=== PATIENT | male | born 2000 | race Caucasian/White ===

== ENCOUNTER 2023-08-30 13:23 | Emergency (ER) | payer MEDICAID, SELFPAY ==
--- NOTE | 2023-08-30 13:50 | CRLHL7_ITS ---
For Patients: As a result of the Century Cures Act, medical imaging exams and procedure reports are released immediately into your electronic medical record. You may view this report before your referring provider. If you have questions, please contact your health care provider. Indication: Pain Technique: Three views Comparison: None Findings/Impression: Bones: On the AP view there is apparent irregularity of the base of the lateral malleolus, question a nondisplaced fracture. Recommend dedicated ankle series. Joint spaces: Unremarkable. Soft tissues: Medial soft tissue swelling. Dictated by Derrell Barrett MD @ 08/30/2023 2:59:54 PM (Electronically Signed)
[2023-08-30 13:53] VITALS: BP 169/95; PULSE 82; RESP 16; TEMP 36.9; O2SAT 97; BMI 41.8
--- NOTE | 2023-08-30 15:02 | CRLHL7_ITS ---
For Patients: As a result of the Century Cures Act, medical imaging exams and procedure reports are released immediately into your electronic medical record. You may view this report before your referring provider. If you have questions, please contact your health care provider. Indication: Fall. Technique: Right ankle 3 views. Comparison: None. Findings: Bones: Bone alignment is normal. There is fragmentation involving the tips of the medial and lateral malleoli. These fragments appear chronic. No convincing evidence for acute fracture. Joint spaces: Unremarkable. Soft tissues: Unremarkable. Dictated by Warner Ryder MD @ 08/30/2023 4:26:54 PM (Electronically Signed)
--- NOTE | 2023-08-30 17:28 | ED.GENADULT ---
HPI - General Adult General Chief complaint: Extremity Pain/Injury, Lower Stated complaint: right foot pain might have broke it Time Seen by Provider: 08/30/23 17:27 History of Present Illness HPI narrative: Patient here with right foot pain, no known injury. History of flat feet. Woke up, stood up on the foot, had pain and fell down. Ice pack applied in triage. 22-year-old young man presenting to the emergency department with severe right foot pain. No known injury at least recently. He had gone to sleep woke and noted to have terrible pain in his right foot. He has been feeling chilled on off today. No fever. He says he has got it elevated. No history of gout. Does endorse rather flat feet. No dietary changes or excessive consumption of usual suspects for gout flare. Related Data Previous Rx's Medication Instructions Recorded cephalexin 500 mg capsule 500 mg PO TID 8 days #24 caps 08/30/23 cephalexin 500 mg capsule 500 mg PO TID 8 days #24 caps 08/30/23 indomethacin 50 mg capsule 50 mg PO TID PRN #21 caps 08/30/23 indomethacin 50 mg capsule 50 mg PO TID PRN #24 caps 08/30/23 Review of Systems Status of ROS: Reports: 6 or more systems reviewed and unremarkable except as noted in History and below PFSH [facility] Social History Non-prescribed substance use: denies use Exam Narrative: Exam Narrative: Pleasant. Seems uncomfortable. Large man. Lower extremities are full consistent with body habitus. Cranial nerves 2-12 intact. Skin is warm and dry without rash other than exquisitely tender mild calor and moderate edema over the dorsum lateral foot. Feet are notably flat as described. No ankle tenderness/medial or lateral malleoli. Breathing easily. Lungs appear to be clear. Heart in regular rate and rhythm is distant. Const: Vital Signs, click to edit/add: Vital Signs - 24 hr 08/30/23 13:53 Temperature 98.5 F Pulse Rate [Right Pulse Oximeter] 82 Respiratory Rate 16 Blood Pressure [Ri ght Upper Arm] 169/95 H Pulse Oximetry 97 Oxygen Delivery Me thod Room Air Documenting provider has reviewed patient's vital signs: yes Course Vital Signs Vital signs: Initial Vital Signs Temperature 98.5 F 08/30/23 13:53 Temperature Source Temporal Artery Scan 08/30/23 13:53 Pulse Rate 82 08/30/23 13:53 Pulse Rhythm Regular 08/30/23 13:53 Respiratory Rate 16 08/30/23 13:53 Blood Pressure 169/95 H 08/30/23 13:53 Blood Pressure Mean 119 H 08/30/23 13:53 Blood Pressure Position Sitting 08/30/23 13:53 Pulse Oximetry 97 08/30/23 13:53 Oxygen Delivery Method Room Air 08/30/23 13:53 Vital Signs Temperature 98.5 F 08/30/23 13:53 Pulse Rate 82 08/30/23 13:53 Respiratory Rate 16 08/30/23 13:53 Blood Pressure 169/95 H 08/30/23 13:53 Pulse Oximetry 97 08/30/23 13:53 Oxygen Delivery Method Room Air 08/30/23 13:53 Temperature 98.5 F 08/30/23 13:53 Pulse Rate 82 08/30/23 13:53 Respiratory Rate 16 08/30/23 13:53 Blood Pressure 169/95 H 08/30/23 13:53 Pulse Oximetry 97 08/30/23 13:53 Oxygen Delivery Method Room Air 08/30/23 13:53 Medical Decision Making MDM Narrative Medical decision making narrative: While the may reflect pain, chills are perhaps concerning sign. Maybe we are dealing more with a cellulitis here than the skeletal. Denies history of gout or reactive arthritis of any sort. Need to look for occult fracture as well. No fluid I think available to drain at this time. X-raying foot to start. Do not see acute bony abnormality on my read. Though there are some paige malleolar fragments I think that are probably old. Date of Service: 08/30/23 Procedure(s): XR foot RT min 3V Accession Number(s): [id number] cc: PROVIDER,TEMP~ For Patients: As a result of the 21st Century Cures Act, medical imaging exams and procedure reports are released immediately into your electronic medical record. You may view this report before your referring provider. If you have questions, please contact your health care provider. Indication: Pain Technique: Three views Comparison: None Findings/Impression: Bones: On the AP view there is apparent irregularity of the base of the lateral malleolus, question a nondisplaced fracture. Recommend dedicated ankle series. Joint spaces: Unremarkable. Soft tissues: Medial soft tissue swelling. Per radiology recommendation proceeding with dedicated ankle. Given acetaminophen and then later ibuprofen. Right ankle 3 views. Comparison: None. Findings: Bones: Bone alignment is normal. There is fragmentation involving the tips of the medial and lateral malleoli. These fragments appear chronic. No convincing evidence for acute fracture. Joint spaces: Unremarkable. Soft tissues: Unremarkable. Reviewed ankle x-rays and I would note what I think are chronic changes as indicated above. Has wrapped himself in blankets feeling cold. Mildly elevated white count. Moderately elevated CRP Treating for possible cellulitis. IV fluids have been started and will be given a g of Rocephin. Pending uric acid and ESR. Severe NSAID sensitivity would suspect gout and maybe this is the 1st occurrence of it. Vitally well during time in the emergency depart See patient discharge plan Lab Data Lab results reviewed: Yes I reviewed the patient's lab results Labs: Lab Results 08/30/23 08/30/23 Range/Units 18:03 18:58 WBC 11.53 H (4.50-11.00) K/uL RBC 4.98 (4.30-5.90) m/uL Hgb 12.3 L (13.5-17.5) gm/dL Hct 39.1 (37.0-53.0) % MCV 79 L (80-100) fL MCH 25 L (26-34) pg MCHC 32 (32-36) gm/dL RDW Coeff of Maggie 15.1 (11.5-15.5) % Plt Count 398 (140-440) K/uL Neut % (Auto) 69.7 (42.0-72.0) % Lymph % (Auto) 17.0 L (20-44) % Preston % (Auto) 11.5 H (0.0-11.0) % Eos % (Auto) 1.3 (0.0-7.0) % Baso % (Auto) 0.3 (0.0-3.0) % Neut # (Auto) 8.00 H (1.7-7.0) K/uL Lymph # (Auto) 2.00 (0.90-2.90) K/uL Preston # (Auto) 1.30 H (0.00-0.90) K/UL Eos # (Auto) 0.10 (0.00-0.50) K/uL Baso # (Auto) 0.00 (0.00-0.30) K/uL Abs Immat Gran (auto) 0.00 (0.00-0.30) K/uL Imm/Tot Granulo (auto) 0.2 % ESR 26 H (2-15) mm/hr Uric Acid 10.2 H (2.2-8.4) mg/dL C-Reactive Protein 6.3 H (0.5-1.0) mg/dL Discharge Plan Discharge Clinical Impression: Acute foot pain, Cellulitis, Gouty arthritis Patient Disposition: Home, Self-Care Condition: Stable Additional Instructions: I think you have features of both cellulitis and arthritis like gout. I think it would be prudent to treat both in this case. You do not need to take more antibiotics until midday tomorrow. I expect things to be a little more irritated tomorrow but return for marked increase in swelling, redness, pain or if you are evolving a fever. I would take the indomethacin regularly at least over the next 3 days. Crutch as needed for discomfort Prescriptions: New cephalexin 500 mg capsule 500 mg PO TID 8 Days Qty: 24 0RF indomethacin 50 mg capsule 50 mg PO TID PRNQty: 24 0RF Rx Instructions: administer with food or milk cephalexin 500 mg capsule 500 mg PO TID 8 Days Qty: 24 0RF indomethacin 50 mg capsule 50 mg PO TID PRNQty: 21 0RF Rx Instructions: administer with food or milk Follow Up/Referrals: Provider,Not a Local [Primary Care Provider] - Stand Alone Forms: MyHealth Info Instructions
[2023-08-30] MEDS: 0.9 % SODIUM CHLORIDE 1000 ml 1,000 ML IV (18:16)
[2023-08-30 18:17] LABS: Basophils Percent Auto 0.3 % (0.0-3.0); Eosinophils Percent Auto 1.3 % (0.0-7.0); Hematocrit 39.1 % (37.0-53.0); Hemoglobin* 12.3 gm/dL (13.5-17.5); Immature Granulocytes Pct Auto 0.2 %; Mean Corpuscular HGB Conc 32 gm/dL (32-36); Mean Corpuscular Hemoglobin 25 pg (26-34); Mean Corpuscular Volume 79 fL (80-100); Monocytes Percent Auto 11.5 % (0.0-11.0); Neutrophils Percent Auto 69.7 % (42.0-72.0); Platelet Count* 398 K/uL (140-440); RDW Coefficient of Variation % 15.1 % (11.5-15.5); Red Blood Count 4.98 m/uL (4.30-5.90); White Blood Count* 11.53 K/uL (4.50-11.00)
[2023-08-30 18:22] LABS: Slide Review Reflex No
[2023-08-30] MEDS: ACETAMINOPHEN 500 MG TABLET 1000 MG PO (18:24)
[2023-08-30 18:34] LABS: C Reactive Protein* 6.3 mg/dL (0.5-1.0)
--- NOTE | 2023-08-30 19:06 | ED.NURSE ---
Report from JADA Sanchez. I will now assume care of patient.
[2023-08-30 19:08] LABS: Uric Acid* 10.2 mg/dL (2.2-8.4)
[2023-08-30] MEDS: cefTRIAXone 1 GM in 0.9 % SODIUM CHLORIDE Mini-bag 100 ML IVPB (19:25)
[2023-08-30] MEDS: IBUPROFEN 400 MG TABLET 800 MG PO (19:25)
[2023-08-30 20:09] LABS: Erythrocyte SedimentationRate* 26 mm/hr (2-15)
== END 2023-08-30 20:25 | disposition home or self-care (01) ==
PROVIDERS: Emergency Provider Family Medicine
DX: L03.115 Cellulitis of right lower limb (principal); M10.9 Gout, unspecified
CPT/HCPCS: 36415; 73610; 73630; 84550; 85025; 85651; 86140; 96372; 99284; A9270; J0696; J7030